=== PATIENT | female | born 1955 | race Caucasian/White ===

== ENCOUNTER 2022-02-14 12:22 | Emergency (ER) | payer BC ==
[~2022-02-14] VITALS: Ht 152.4 cm; Wt 77.1 kg
--- NOTE | 2022-02-14 12:56 | NUR ---
PT IS IN ROOM #2A. DR WRIGHT EVALUATED THE PT.
[2022-02-14] MEDS ORDERED: HYDROCODONE/APAP 5-325MG TABLET PO ONE (13:15)
[2022-02-14] MEDS ORDERED: TRAM50TA2 PO (13:17)
[2022-02-14] MEDS ORDERED: HYDROCODONE/APAP 5-325MG TABLET ONE (13:20)
--- NOTE | 2022-02-14 13:29 | NUR ---
PT WAS D/C'd TO HOME . D/C INSTRUCTIONS GIVEN TO THE PT BY DR WRIGHT.
[2022-02-14 13:31] VITALS: BP 136/79
== END 2022-02-14 13:32 | disposition home or self-care (01) ==
LOC: ER 12:24
DX: S80.02XA Contusion of left knee, initial encounter (principal); W18.39XA Other fall on same level, initial encounter; Y92.89 Other specified places as the place of occurrence of the external cause
CPT/HCPCS: A4663